=== PATIENT | male | born 1955 | race African-American/Black ===

== ENCOUNTER 2017-11-10 13:34 | Emergency (ER) | payer OTHER ==
[~2017-11-10] VITALS: Ht 170.2 cm; Wt 61.7 kg
[2017-11-10 13:56] VITALS: BP 135/80
[2017-11-10 14:52] LABS: APPEARANCE,URINE CLEAR; KETONES,URINE 1+ (NEGATIVE); LEUKOCYTE ESTERASE ,URINE NEGATIVE (NEGATIVE); NITRITE,URINE NEGATIVE (NEGATIVE); PH,URINE 5 (4.5-8.0); PROTEIN,URINE NEGATIVE (NEGATIVE); UROBILINOGEN,URINE NORMAL MG/DL (0.0-1.0)
[2017-11-10 15:35] LABS: RBC,URINE 0-2 /HPF (0 - 0); WBC,URINE 0-2 /HPF (0 - 0)
[2017-11-10 15:50] VITALS: BP 140/75
--- NOTE | 2017-11-10 20:17 | Emergency Room Report ---
History of Present Illness General Chief Complaint: Male Urogenital Problems Source: Patient Present Illness HPI The patient is a 62-year-old male with a history of BPH presenting for difficulty urinating. He states that he has had BPH for years and has a [facility]ist at [facility]. He takes Flomax which usually helps. He states that he has been more active and this past week and has been doing vigorous exercise which may have provoked the BPH. He states that he has not been able to fully urinate since last night. Pain is an 8/10 dull ache to the mid lower abdomen. Does not radiate. Worse with touch. He states that he can urinate but very little at a time. He denies dysuria, hematuria, back pain, nausea, vomiting, fever, chills Allergies: Coded Allergies: No Known Allergies (Unverified , 11/10/17) Patient History Past Medical History: see triage record Pertinent Family History: none Reviewed Nursing Documentation: PMH: Agreed, PSxH: Agreed Nursing Documentation-PMH Past Medical History: No History, Except For Review of Systems All Other Systems: negative except mentioned in HPI Physical Exam Vital Signs Date Time Temp Pulse Resp B/P (MAP) Pulse Ox O2 Delivery O2 Flow Rate FiO2 11/10/17 13:56 97.3 16 135/80 100 Room Air 11/10/17 13:56 89 Sp02 EP Interpretation: reviewed, normal General Appearance: no apparent distress, alert, GCS 15, non-toxic Head: normocephalic, atraumatic Eyes: bilateral eye normal inspection, bilateral eye PERRL ENT: hearing grossly normal, normal pharynx, no angioedema, normal voice Gastrointestinal: normal bowel sounds, soft, non-distended, no guarding, no rebound, tenderness - suprapubic Rectal: deferred Musculoskeletal: back normal, gait/station normal, normal range of motion, non- tender Neurologic: alert, oriented x3, responsive, motor strength/tone normal, sensory intact, speech normal Psychiatric: judgement/insight normal, memory normal, mood/affect normal, no suicidal/homicidal ideation Skin: normal color, no rash, warm/dry, well hydrated Lymphatic: no adenopathy Medical Decision Making PA Attestation Dr. Falcon is my supervising physician. Patient management was discussed with my supervising physician Diagnostic Impression: Primary Impression: BPH (benign prostatic hyperplasia) Qualified Codes: N40.1 - Benign prostatic hyperplasia with lower urinary tract symptoms; R33.8 - Other retention of urine ER Course The patient is a 62-year-old male with a history of BPH presenting for difficulty urinating. Differential diagnosis considered but not limited to: BPH, urinary retention, UTI, pyelonephritis, pyelonephrosis PE: Afebrile. NAD Abdomen is soft. Nondistended. There is tenderness to palpation over suprapubic region only. No CVA tenderness Avila catheter was placed and the patient is immediately feeling relieved. Pain is now a 0/10. No gross hematuria or signs of infection. Urinalysis is unremarkable The patient will continue to use Flomax and needs to see his urologist as soon as possible. He states that he does not want the catheter in place at time of discharge. I informed him of the risks and gave him precautions to return. He was told he needs to return immediately if he is unable to urinate Laboratory Tests Test 11/10/17 14:06 Urine Color Pale yellow Urine Appearance Clear Urine pH 5 (4.5-8.0) Urine Specific [place] 1.015 (1.005-1.035) Urine Protein Negative (NEGATIVE) Urine Glucose (UA) Negative (NEGATIVE) Urine Ketones 1+ (NEGATIVE) H Urine Occult Blood 2+ (NEGATIVE) H Urine Nitrite Negative (NEGATIVE) Urine Bilirubin Negative (NEGATIVE) Urine Urobilinogen Normal MG/DL (0.0-1.0) Urine Leukocyte Esterase Negative (NEGATIVE) Urine RBC 0-2 /HPF (0 - 0) H Urine WBC 0-2 /HPF (0 - 0) Urine Squamous Epithelial Cells None /LPF (NONE/OCC) Urine Bacteria None /HPF (NONE) Lab Results Impression unremarkable Last Vital Signs Date Time Temp Pulse Resp B/P (MAP) Pulse Ox O2 Delivery O2 Flow Rate FiO2 11/10/17 15:50 97.3 66 15 140/75 98 Room Air Status: improved Disposition: HOME, SELF-CARE Condition: Improved Referrals: NON PHYSICIAN (PCP) Patient Instructions: Benign Prostatic Hyperplasia Additional Instructions: I discussed my findings with the patient. All questions and concerns have been answered. Treatment and medication compliance have been addressed.Return to ED if symptoms worsen, new symptoms arise, or if needed for any reason. Patient verbalized understanding of discharge instructions. Please continue to take your medications as prescribed and followup with your urologist as soon as possible. Return to emergency Department if you are unable to urinate, you experience pain with urination, you see blood in your urine or coming out of your penis, or for any other reason FERNIE GREENBERG Nov 10, 2017 20:17
== END 2017-11-10 15:50 | disposition home or self-care (01) ==
LOC: EMR 14:39
DX: N40.1 Benign prostatic hyperplasia with lower urinary tract symptoms (principal); R33.8 Other retention of urine; R30.0 Dysuria
CPT/HCPCS: 81003; 99282

== ENCOUNTER 2019-03-01 06:51 | Emergency (ER) | payer OTHER ==
[~2019-03-01] VITALS: Ht 170.2 cm; Wt 63.5 kg
[2019-03-01 07:39] VITALS: BP 128/74
--- NOTE | 2019-03-01 07:42 | NUR ---
ED Nurse Note:pt. reported not being able to urinate since last night and in lots of pain, A/Ox4 ambulatory with steady gait, VSS, F/C was incerted per MD order, andblood and urine sent to labs
[2019-03-01 07:46] LABS: APPEARANCE,URINE CLEAR; BILIRUBIN, URINE NEGATIVE (NEGATIVE); COLOR,URINE PALE YELLOW; GLUCOSE, URINE (UA) NEGATIVE (NEGATIVE); KETONES,URINE NEGATIVE (NEGATIVE); LEUKOCYTE ESTERASE ,URINE NEGATIVE (NEGATIVE); NITRITE,URINE NEGATIVE (NEGATIVE); PH,URINE 6 (4.5-8.0); PROTEIN,URINE NEGATIVE (NEGATIVE); UROBILINOGEN,URINE NORMAL MG/DL (0.0-1.0)
--- NOTE | 2019-03-01 07:47 | Emergency Room Report ---
History of Present Illness General Chief Complaint: Male Urogenital Problems Source: Patient Present Illness HPI 63-year-old male with a history of enlarged prostate, currently on finasteride and Flomax, reports that since around 2 AM last night he developed increasing difficulty in voiding urine. He reports he is able to dribble small amounts, and reports a good bit of pressure. Reports she has had this same episode multiple times in the past, had a straight cath placed and then discontinued immediately and then never had issues again for many months. He reorts compliance with his prostate medications, and reports [facility] Request that we place a catheter and then discharged without a catheter and leg bag because he does not like having it at work, and he says that [facility] rechecked him and place a Avila catheter if need be. Denies abdominal pain, fever, back pain, hematuria, any other symptoms. Allergies: Coded Allergies: No Known Allergies (Unverified , 11/10/17) Patient History Past Medical History: see triage record Reviewed Nursing Documentation: PMH: Agreed; PSxH: Agreed Review of Systems All Other Systems: negative except mentioned in HPI Physical Exam Vital Signs Date Time Temp Pulse Resp B/P (MAP) Pulse Ox O2 Delivery O2 Flow Rate FiO2 03/01/19 07:07 97.9 83 16 128/74 98 Room Air Sp02 EP Interpretation: reviewed, normal General Appearance: no apparent distress, alert, non-toxic Head: normocephalic Eyes: bilateral eye normal inspection, bilateral eye PERRL, bilateral eye EOMI ENT: normal ENT inspection, hearing grossly normal, normal pharynx, no angioedema, normal voice, moist mucus membranes Neck: normal inspection, full range of motion, supple, supple/symm/no masses Respiratory: chest non-tender, lungs clear, normal breath sounds, chest symmetrical, palpation of chest normal Cardiovascular #1: normal peripheral pulses, regular rate, rhythm Cardiovascular #2: 2+ radial (R), 2+ radial (L) Gastrointestinal: normal inspection, non tender, soft, no mass, no guarding, no rebound Rectal: deferred Genitourinary: normal inspection, no CVA tenderness, penis normal, scrotum normal Musculoskeletal: back normal, gait/station normal, normal range of motion, non- tender, no calf tenderness Neurologic: alert, responsive, clinical documentation specialist III-XII nml as tested, motor strength/tone normal, sensory intact, speech normal Psychiatric: memory normal, mood/affect normal Skin: normal color, no rash, warm/dry, normal turgor Lymphatic: no adenopathy Medical Decision Making Diagnostic Impression: Primary Impression: Acute urinary retention ER Course Patient had a Avila catheter placed, about 150 cc of translucent yellow nonbloody urine was obtained in collection bag. Patient refused to leave the Avila catheter in place and requested to be remove it after we had emptied and decompress his bladder. I explained to him that since he is already on finasteride as well as Flomax and been compliant with it, it is unlikely that this will be the last time in the next couple of days that he has this problem. He reassured me that even if later today he needs to have catheter placed you go to [facility] where he is already made arrangements, but he came into our office because in the middle the night it just became unbearable. He was able to void all day yesterday, and he has no dysuria or infectious symptomatology. Per his request, we will discontinue his Avila catheter. He will be discharged with follow-up with the [facility] as he previously already had arranged. Urinalysis and labs unremarkable, no evidence of infection, just a small amount of blood, likely from Avila insertion. Last Vital Signs Date Time Temp Pulse Resp B/P (MAP) Pulse Ox O2 Delivery O2 Flow Rate FiO2 03/01/19 07:07 97.9 83 16 128/74 98 Room Air Disposition: HOME, SELF-CARE Condition: Stable Referrals: NON PHYSICIAN (PCP) GREGOR MOREAU M.D Mar 01, 2019 07:47
[2019-03-01 07:50] LABS: BASOPHILS % (AUTO) 1.1 % (0.0-2.0); EOSINOPHILS % (AUTO) 0.1 % (0.0-3.0); HEMATOCRIT 44.6 % (42.0-52.0); HEMOGLOBIN 14.3 G/DL (14.2-18.0); LYMPHOCYTES % (AUTO) 17.8 % (20.0-45.0); MEAN CORPUSCULAR VOLUME 83 FL (80-99); MONOCYTES % (AUTO) 5.8 % (1.0-10.0); NEUTROPHILS % (AUTO) 75.2 % (45.0-75.0); PLATELET COUNT 221 K/UL (150-450); RED BLOOD COUNT 5.38 M/UL (4.70-6.10); RED CELL DISTRIBUTION WIDTH 12.5 % (11.6-14.8); WHITE BLOOD COUNT 5.5 K/UL (4.8-10.8)
[2019-03-01 07:53] LABS: ANION GAP 9 mmol/L (5-15); BLOOD UREA NITROGEN 18 mg/dL (7-18); CALCIUM 9.8 MG/DL (8.5-10.1); CARBON DIOXIDE 26 MMOL/L (21-32); CHLORIDE 103 MMOL/L (98-107); POTASSIUM 3.6 MMOL/L (3.5-5.1); SODIUM 138 MMOL/L (136-145)
[2019-03-01 08:00] LABS: ALANINE AMINOTRANSFERASE 29 U/L (12-78); ALBUMIN 4.2 G/DL (3.4-5.0); ALBUMIN/GLOBULIN RATIO 1.1 (1.0-2.7); ALKALINE PHOSPHATASE 57 U/L (46-116); ASPARTATE AMINO TRANSFERASE 23 U/L (15-37); BILIRUBIN,TOTAL 0.5 MG/DL (0.2-1.0)
[2019-03-01 08:21] VITALS: BP 126/75
[2019-03-01 08:22] VITALS: BP 126/75
--- NOTE | 2019-03-01 08:22 | NUR ---
ER DISCHARGE NOTE: Patient is cleared to be discharged per ERMD, pt is aox4, on room air, with stable vital signs. pt was given dc and prescription instructions, pt was able to verbalize understanding, pt is able to ambulate with steady gait. pt took all belongings.
== END 2019-03-01 08:22 | disposition home or self-care (01) ==
LOC: EMR 07:30
DX: N40.1 Benign prostatic hyperplasia with lower urinary tract symptoms (principal); R33.8 Other retention of urine
CPT/HCPCS: 36415; 80053; 81003; 85025; 99284

== ENCOUNTER 2019-05-22 04:43 | Emergency (ER) | payer OTHER ==
[~2019-05-22] VITALS: Ht 172.7 cm; Wt 61.2 kg
--- NOTE | 2019-05-22 04:47 | NUR ---
PT CALLED TO TRIAGE ROOM. PT STATES "I NEED TO GO TO THE BATHROOM CANT HOLD IT, I NEED TO GO NOW". WILL TRIAGE PT WHEN HE RETURNS
[2019-05-22] MEDS ORDERED: PROSCAR5 MG ORAL (04:58)
[2019-05-22] MEDS ORDERED: FLOMAX0.4 MG ORAL (04:58)
[2019-05-22 05:00] VITALS: BP 124/79
--- NOTE | 2019-05-22 05:01 | NUR ---
ED Nurse Note: Pt ambulated to ED from home c/o enlarged prostate and difficulty urinating since 2299. 09/05 pain in urinary track. Pt is A&Ox4
--- NOTE | 2019-05-22 05:19 | Emergency Room Report ---
History of Present Illness General Chief Complaint: Male Urogenital Problems Source: Patient Present Illness HPI This is a 63-year-old male with a history of enlarged prostate. He is taking both Flomax and finasteride already. He presents with urinary retention and painful urination. He says since 11 PM he is only been dripping urine. Very painful with urination. Similar symptom in the past. He is scheduled to see a urologist next Monday for consultation for TURP procedure. Is 10 out of 10. Worse with urination. Allergies: Coded Allergies: No Known Allergies (Unverified , 11/10/17) Patient History Past Medical History: see triage record, old chart reviewed Past Surgical History: none Pertinent Family History: none Social History: Denies: smoking Immunizations: other Reviewed Nursing Documentation: PMH: Agreed; PSxH: Agreed Nursing Documentation-PMH Past Medical History: No History, Except For Review of Systems Eye: Denies: eye pain, blurred vision ENT: Denies: ear pain, nose congestion, throat swelling Respiratory: Denies: cough, shortness of breath Cardiovascular: Denies: chest pain, palpitations Gastrointestinal: Denies: abdominal pain, diarrhea, nausea, vomiting Genitourinary: Reports: pain, retention Musculoskeletal: Denies: back pain, joint pain Skin: Denies: rash Neurological: Denies: headache, numbness Endocrine: Denies: increased thirst, increased urine Hematologic/Lymphatic: Denies: easy bruising All Other Systems: negative except mentioned in HPI Physical Exam Vital Signs Date Time Temp Pulse Resp B/P (MAP) Pulse Ox O2 Delivery O2 Flow Rate FiO2 05/22/19 04:54 98.1 107 19 124/79 (94) 97 Vitals normal except for tachycardia Sp02 EP Interpretation: reviewed, normal General Appearance: well appearing, no apparent distress, alert Head: normocephalic, atraumatic Eyes: bilateral eye PERRL, bilateral eye EOMI ENT: hearing grossly normal, normal pharynx Neck: full range of motion, supple, no meningismus Respiratory: chest non-tender, lungs clear, normal breath sounds Cardiovascular #1: regular rate, rhythm, no murmur Gastrointestinal: normal bowel sounds, non tender, no mass, no organomegaly, no bruit, non-distended Musculoskeletal: back normal, gait/station normal, normal range of motion Psychiatric: mood/affect normal Skin: warm/dry Medical Decision Making Diagnostic Impression: Primary Impression: Urinary retention Additional Impression: BPH (benign prostatic hyperplasia) Qualified Codes: N40.1 - Benign prostatic hyperplasia with lower urinary tract symptoms; R33.8 - Other retention of urine ER Course Patient presents with urinary retention secondary to BPH. He had about 400 to 500 cc of urine output after the Avila. He felt better now. No evidence of any infection. Blood is probably traumatic from the Avila. He said he has to work so he can have a Avila or a leg bag again. He requested to be removed. He has an appointment on Monday with a urologist. Last Vital Signs Date Time Temp Pulse Resp B/P (MAP) Pulse Ox O2 Delivery O2 Flow Rate FiO2 05/22/19 04:54 98.1 107 19 124/79 (94) 97 Status: improved Disposition: HOME, SELF-CARE Condition: Stable Additional Instructions: Follow-up with your urologist on Monday as scheduled. Return if symptoms worsen. Radu Castillo MD May 22, 2019 05:19
--- NOTE | 2019-05-22 05:25 | NUR ---
ED Nurse Note: Avila catheter inserted, no issues noted. Avila draining appropriately to gravity.
[2019-05-22 06:07] LABS: APPEARANCE,URINE CLEAR; BILIRUBIN, URINE NEGATIVE (NEGATIVE); COLOR,URINE PALE YELLOW; GLUCOSE, URINE (UA) NEGATIVE (NEGATIVE); KETONES,URINE 1+ (NEGATIVE); LEUKOCYTE ESTERASE ,URINE NEGATIVE (NEGATIVE); NITRITE,URINE NEGATIVE (NEGATIVE); PH,URINE 5 (4.5-8.0); PROTEIN,URINE NEGATIVE (NEGATIVE); UROBILINOGEN,URINE NORMAL MG/DL (0.0-1.0)
--- NOTE | 2019-05-22 06:30 | NUR ---
ER DISCHARGE NOTE: Patient is cleared to be discharged per ERMD, pt is aox4, on room air, with stable vital signs. pt was given dc and prescription instructions, pt was able to verbalize understanding, pt id band removed. pt is able to ambulate with steady gait. pt took all belongings.
== END 2019-05-22 06:30 | disposition home or self-care (01) ==
LOC: EMR 05:24
DX: R33.9 Retention of urine, unspecified (principal); N40.1 Benign prostatic hyperplasia with lower urinary tract symptoms; R33.8 Other retention of urine
CPT/HCPCS: 51702; 81003; 99284

== ENCOUNTER 2020-02-21 19:17 | Emergency (ER) | payer OTHER ==
[~2020-02-21] VITALS: Ht 170.2 cm; Wt 61.7 kg
[~2020-02-21 19:17] MED LIST: FLOMAX0.4 MG ORAL; PROSCAR5 MG ORAL
[2020-02-21 19:25] VITALS: BP 162/85
--- NOTE | 2020-02-21 19:27 | NUR ---
ED Nurse Note: Patient walked in from home d/t lower abdomen and testicular pain, hx of BPH, patient unable to urinate today but has had feeling of urgency. Patient aao x 4 and ambulatory with steady. Pain /. Patient stable upon assessment.
--- NOTE | 2020-02-21 19:28 | Emergency Room Report ---
History of Present Illness General Chief Complaint: Male Urogenital Problems Source: Patient Present Illness HPI 64-year-old male presents with acute urinary retention started this morning, has not urinated just a trickle, aggravated by his BPH alleviated by a Escamilla severity is severe, constant no fevers no chills patient presents for evaluation for insertion Allergies: Coded Allergies: No Known Allergies (Unverified , 11/10/17) COVID-19 Screening Contact w/high risk pt: No Recent Travel to affected area: No Experienced COVID-19 symptoms?: No Patient History Past Medical History: see triage record Reviewed Nursing Documentation: PMH: Agreed; PSxH: Agreed Nursing Documentation-PMH Past Medical History: No History, Except For Review of Systems All Other Systems: negative except mentioned in HPI Physical Exam Vital Signs Date Time Temp Pulse Resp B/P (MAP) Pulse Ox O2 Delivery O2 Flow Rate FiO2 02/21/20 19:20 98.2 102 20 164/87 (112) 98 General Appearance: well appearing, no apparent distress Head: normocephalic, atraumatic ENT: hearing grossly normal, normal voice Neck: full range of motion, supple Respiratory: no respiratory distress, speaking full sentences Gastrointestinal: distended, tenderness - Suprapubic fullness Neurologic: alert, normal gait Psychiatric: mood/affect normal Skin: no rash Medical Decision Making Diagnostic Impression: Primary Impression: Acute urinary retention ER Course 64-year-old male presents with acute urinary retention, Escamilla was inserted patient obtain relief post escamilla insertion Escamilla converted to leg bag Dispo home w/ return precautions Follow-up with PCP Last Vital Signs Date Time Temp Pulse Resp B/P (MAP) Pulse Ox O2 Delivery O2 Flow Rate FiO2 02/21/20 19:20 98.2 102 20 164/87 (112) 98 Disposition: HOME, SELF-CARE Condition: Stable Scripts Cephalexin* (KEFLEX*) 500 Mg Capsule 500 MG ORAL EVERY 6 HOURS, #28 CAP Prov: Oscar Fermin MD 02/21/20 Referrals: [facility] Patient Instructions: Acute Urinary Retention, Male, [id number], Escamilla Catheter Care, Adult, [id number] Additional Instructions: The patient was provided with discharge instructions, notified to follow-up with a primary care doctor and or specialist in the next 24-48 hours, and to return to the ED if they have worsening of their symptoms. Please note that this report is being documented using [employer] technology. This can lead to erroneous entry secondary to incorrect interpretation by the dictating instrument. Oscar Fermin MD Feb 21, 2020 19:28
--- NOTE | 2020-02-21 19:30 | NUR ---
ED Nurse Note: 14F coude cath inserted, patient tolerated procedure, urine draining, urine sample sent to lab.
[2020-02-21] MEDS ORDERED: CEPHALEXIN500 MG ORAL (19:35)
[2020-02-21 19:57] LABS: APPEARANCE,URINE CLEAR; BILIRUBIN, URINE NEGATIVE (NEGATIVE); COLOR,URINE PALE YELLOW; GLUCOSE, URINE (UA) NEGATIVE (NEGATIVE); KETONES,URINE 2+ (NEGATIVE); LEUKOCYTE ESTERASE ,URINE NEGATIVE (NEGATIVE); NITRITE,URINE NEGATIVE (NEGATIVE); PH,URINE 5 (4.5-8.0); PROTEIN,URINE NEGATIVE (NEGATIVE); UROBILINOGEN,URINE NORMAL MG/DL (0.0-1.0)
--- NOTE | 2020-02-21 20:05 | NUR ---
ED Nurse Note: Patient stated not wanting to keep urinary catheter in, ER MD spoke to patient about risks and benefits, pt verbalized understanding. Per navya CELIS to remove urinary catheter. Addendum: 02/21/20 at 2016 by IOROPEL ED Nurse Note: Patient stated not wanting to keep urinary catheter in d/t [facility] and will be [facility], ER MD spoke to patient about risks and benefits, pt verbalized understanding. Per navya CELIS to remove urinary catheter.
--- NOTE | 2020-02-21 20:07 | NUR ---
ER DISCHARGE NOTE: Patient is cleared to be discharged per ERMD, pt is aox4, on room air, with stable vital signs. pt was given dc and prescription instructions, pt was able to verbalize understanding, pt id band removed. pt is able to ambulate with steady gait. pt took all belongings. pt stable upon discharge.
[2020-02-21 20:14] VITALS: BP 155/89
== END 2020-02-21 20:15 | disposition home or self-care (01) ==
LOC: EMR 19:59
DX: N40.1 Benign prostatic hyperplasia with lower urinary tract symptoms (principal); R33.8 Other retention of urine
CPT/HCPCS: 51702; 81003; 99283

== ENCOUNTER 2020-02-21 22:00 | Emergency (ER) | payer OTHER ==
[~2020-02-21] VITALS: Ht 170.2 cm; Wt 61.7 kg
[~2020-02-21 22:00] MED LIST changes: +CEPHALEXIN500 MG ORAL
[2020-02-21 22:10] VITALS: BP 135/82
--- NOTE | 2020-02-21 22:10 | NUR ---
ED Nurse Note: Patient returned to ED from home, pt was seen earlier tonight for same complaint. Patient c/o lower abdominal pain and anuria. Pain 10/10, bladder palpable. Patient aao x 4 and ambulatory with steady gait. Patient stable upon assessment.
--- NOTE | 2020-02-21 22:12 | Emergency Room Report ---
History of Present Illness General Chief Complaint: Male Urogenital Problems Source: Patient Present Illness HPI Patient is a 64-year-old male presents after increased inability to void. Recent ER visit for similar symptoms. He had recently been given prescription for antibiotics due to urinary infection and urinary retention. Coud catheter had been placed which patient insisted on having removed. Patient presents after continued inability to void. He reports having urgency and sensation that he needs to void. Denies any vomiting. Denies any other current complaints. Allergies: Coded Allergies: No Known Allergies (Unverified , 11/10/17) COVID-19 Screening Contact w/high risk pt: No Recent Travel to affected area: No Experienced COVID-19 symptoms?: No Patient History Past Medical History: see triage record Reviewed Nursing Documentation: PMH: Agreed; PSxH: Agreed Nursing Documentation-PM Past Medical History: No History, Except For Review of Systems All Other Systems: negative except mentioned in HPI Physical Exam Vital Signs Date Time Temp Pulse Resp B/P (MAP) Pulse Ox O2 Delivery O2 Flow Rate FiO2 02/21/20 22:04 98.1 100 20 140/78 (98) 98 Room Air General Appearance: well appearing, no apparent distress, alert, GCS 15 Head: normocephalic, atraumatic ENT: hearing grossly normal, normal voice Neck: full range of motion, supple Respiratory: lungs clear, no respiratory distress, speaking full sentences Cardiovascular #1: normal inspection Gastrointestinal: soft, tenderness - suprapubic Musculoskeletal: no calf tenderness Neurologic: alert, motor strength/tone normal, wax engraver III-XII nml as tested, oriented x3, normal gait Psychiatric: mood/affect normal Skin: normal inspection, no rash Medical Decision Making Diagnostic Impression: Primary Impression: Urinary retention ER Course Patient presented for urinary retention. Differential diagnosis include was not limited to prostate hypertrophy, urinary tract infection, prostatitis among others. Patient has a benign exam and does not appear to require any imaging or laboratory testing at this time. Patient had recently had urinary labs performed. He is currently on prescription for antibiotics. Catheter was placed by nurse. Patient was advised to follow-up with urology for catheter removal.Patient was advised to return if any concerns. Advised to return if worse. Last Vital Signs Date Time Temp Pulse Resp B/P (MAP) Pulse Ox O2 Delivery O2 Flow Rate FiO2 02/21/20 22:04 98.1 100 20 140/78 (98) 98 Room Air Status: improved Disposition: HOME, SELF-CARE Condition: Stable Charbel Falcon MD Feb 21, 2020 22:12
--- NOTE | 2020-02-21 22:30 | NUR ---
ED Nurse Note: 14F coude cath inserted, patient tolerated procedure, urine draining.
--- NOTE | 2020-02-21 22:31 | NUR ---
ED Nurse Note: ERMD at bedside.
--- NOTE | 2020-02-21 22:50 | NUR ---
ED Nurse Note: Urinary catheter changed to leg bag, provided instructions to patient regarding switching from leg bag to urine drainage bag at night when sleeping. Patient verbalized understanding and re-stated instructions regarding catheter care.
[2020-02-21 22:55] VITALS: BP 138/85
--- NOTE | 2020-02-21 22:55 | NUR ---
ER DISCHARGE NOTE: Patient is cleared to be discharged per ERMD, pt is aox4, on room air, with stable vital signs. pt was given dc instructions, pt was able to verbalize understanding, pt id band removed. pt is able to ambulate with steady gait. pt took all belongings. pt stable upon discharge.
== END 2020-02-21 22:55 | disposition home or self-care (01) ==
LOC: EMR 22:25
DX: R33.9 Retention of urine, unspecified (principal)
CPT/HCPCS: 99282